=== PATIENT | male | born 1940 | race Caucasian/White ===

== ENCOUNTER → 2018-12-22 | Outpatient (CLI) | payer OTHER ==
[~2018-12-22] MED LIST: ADULT LOW DOSE81 MG PO; ALBUTEROL INH; ALENDRONATE; ASPIRIN81 MG PO; ATORVASTATIN CA40 MG PO; CARVEDILOL3.125 MG PO; CEFPODOXIME PR200 M1 PO; DOXYCYCLINE 10100 MG; GABAPENTIN100 MG PO; LISINOPRIL20 MG PO; MELOXICAM7.5 MG PO; NEURONTIN 300300 M1 PO; NITROQUICK0.4 MG SL; NITROSTAT0.4 M1 SL; OMEPRAZOLE 20 M20 M1 PO; PLAVIX 75 MG TA75 MG PO; PREDNISONE 10 M10 M1; PREDNISONE 10 M10 M1 PO; PRILOSEC 20 MG20 MG; PRINIVIL5 MG PO; PROTONIX40 M2 PO; TRAMADOL 50 MG50 MG PO; VENTOLIN HFA 1818 GM INH; ZOCOR 10 MG TAB10 MG PO
--- NOTE | 2018-12-22 11:52 | 2DMMODE ---
[place] [address] 2 D/M-MODE ECHOCARDIOGRAM Name: SHUN SERNA Room: [facility]#: [id number] Admission: 12/22/18 Attend Phys: Wilner Britton Discharge: Date of : 40 Date of Service: 12/22/18 1152 Report #: [id number] THIS REPORT FOR: //name// APPROVED REPORT Study performed: 12/22/2018 10:07:14 EXAM: Comprehensive 2D, Doppler, and color-flow Echocardiogram Patient Location: Out-Patient BSA: 1.67 HR: 45 bpm BP: 142/80 mmHg Other Information Study Quality: Good Indications CAD Hypertension/HDD OLD IN 2D Dimensions IVSd: 9.57 (7-11mm) LVOT Diam: 20.87 (18-24mm) LVDd: 40.52 mm PWd: 8.67 (7-11mm) Ascending Ao: 32.22 (22-36mm) LVDs: 28.37 (25-40mm) Aortic Root: 24.06 mm Volumes Left Atrial Volume (Systole) LA ESV Index: 18.60 mL/m2 Aortic Valve AoV Peak Lawrence.: 1.20 m/s AO Peak Gr.: 5.80 mmHg LVOT Max P.08 mmHg AO Mean Gr.: 3.19 mmHg LVOT Mean P.01 mmHg LVOT Max V: 1.13 m/s AO V2 VTI: 28.03 cm LVOT Mean V: 0.63 m/s BRONSON (VTI): 3.20 cm2 LVOT V1 VTI: 26.21 cm Mitral Valve E/A Ratio: 1.46 MV Decel. Time: 240.35 ms MV E Max Lawrence.: 0.87 m/[place] [address] 2 D/M-MODE ECHOCARDIOGRAM Name: KAREEMSHUNMARTIN AMOR Room: [facility]#: [id number] Admission: 12/22/18 Attend Phys: Wilner Britton Discharge: Date of : 40 Date of Service: 12/22/18 1152 Report #: [id number] PHT: 69.70 ms MVA (PHT): 3.16 cm2 TDI E/Lateral E': 12.43 E/Medial E': 12.43 Medial E' Lawrence.: 0.07 m/s Lateral E' Lawrence.: 0.07 m/s Pulmonary Valve PV Peak Lawrence.: 0.79 m/s PV Peak Gr.: 2.51 mmHg Tricuspid Valve RAP Estimate: 5.00 mmHg TR Peak Gr.: 25.11 mmHg RVSP: 30.11 mmHg PA Pressure: 30.11 mmHg Left Ventricle The left ventricle is normal size. There is normal LV segmental wall motion. There is normal left ventricular wall thickness. Left ventricular systolic function is normal. The left ventricular ejection fraction is within the normal range. LVEF is 60%. The left ventricular diastolic function is normal. Right Ventricle The right ventricle is normal size. The right ventricular systolic function is normal. Atria The left atrium size is normal. The right atrium size is normal. Aortic Valve Moderate aortic valve sclerosis. No aortic regurgitation is present. There is no aortic valvular stenosis. Mitral Valve The mitral valve is mildly thickened. Mild mitral regurgitation. No evidence of mitral valve stenosis. Tricuspid Valve The tricuspid valve is normal in structure. Mild tricuspid regurgitation. Pulmonic Valve The pulmonary valve is normal in structure. [place] [address] 2 D/M-MODE ECHOCARDIOGRAM Name: SHUN SERNA Room: [facility]#: [id number] Admission: 12/22/18 Attend Phys: Wilner Britton Discharge: Date of : 40 Date of Service: 12/22/18 1152 Report #: [id number] Great Vessels The aortic root is normal in size. IVC is normal in size and collapses >50% with inspiration. Pericardium There is no pericardial effusion. <Conclusion> The left ventricle is normal size. There is normal left ventricular wall thickness. Left ventricular systolic function is normal. The left ventricular ejection fraction is within the normal range. LVEF is 60%. The left ventricular diastolic function is normal. The right ventricle is normal size. The left atrium size is normal. Moderate aortic valve sclerosis. No aortic regurgitation is present. There is no aortic valvular stenosis. The mitral valve is mildly thickened. Mild mitral regurgitation. No evidence of mitral valve stenosis. The tricuspid valve is normal in structure. Mild tricuspid regurgitation. IVC is normal in size and collapses >50% with inspiration. There is no pericardial effusion. There is normal LV segmental wall motion. <ELECTRONICALLY SIGNED> By: Jason Wilde MD, FACC 12/22/18 1152 1152 1152 Jason Wilde MD, FACC /INF
== END ==
LOC: M.CRD 10:00
DX: I08.8 Other rheumatic multiple valve diseases (principal); I25.10 Atherosclerotic heart disease of native coronary artery without angina pectoris; I10 Essential (primary) hypertension; I25.2 Old myocardial infarction